=== PATIENT | female | born 1945 | race Caucasian/White ===

== ENCOUNTER 2016-11-21 23:50 | Inpatient (IN) | payer MEDICARE, OTHER ==
--- NOTE | ~2016-11-21 | HP ---
History And Physical [facility] [address] [facility] [place]. [address] NAME: BRITTNEY GUTIERREZ : 47 STATUS : ADM IN [facility]#: [id number] AGE: 71 ADM/REG DATE : 11/22/16 MR#: [id number] REPORT SERV DATE: 11/22/16 DICTATED BY: SALOMON TUCKER DATE: 11/22/16 REPORT STATUS : Draft TRANSCRIBED BY: MODL DATE: 11/22/16 DATE OF ADMISSION: 11/22/2016 CHIEF COMPLAINT: Right lower extremity swelling and redness with an ulcer. HISTORY OF PRESENT ILLNESS: This is a 71-year-old female with a history of left below-knee amputation due to osteomyelitis in the past, history of chronic neuropathy and depression, who presents to the emergency room at [facility], with the above-mentioned complaint. She is brought here by her son and [id number]-vh-[id number]. History is obtained from the patient and the family who is at bedside, and reviewing data available on the [employer] system. According to available data, Mrs Gutierrez had a right great toe ulcer that has been ongoing for about two months at least now. She has been visited by home health and Dr. Cruz at home, who have been providing care and treatment for her foot. In the last week or two, this has been slowly progressively getting worse. There was increasing redness and swelling in and around her right great toe, and the ulcer was getting worse as well. The home health nurse and other providers decided it was really getting worse and instructed the family to take her to the hospital to be evaluated. In the emergency room, initial workup revealed a right toe cellulitis versus osteomyelitis and Hospitalist Service is asked to admit her for further evaluation and treatment. At the time of my evaluation, she denied any chest pain, palpitations, or orthopnea. She had no cough, hemoptysis, night sweats, or weight loss. She has not had any fevers, chills, nausea, vomiting, or diarrhea. She has not had any recent falls or loss of consciousness either. No other history of hematemesis, hematochezia, or hematuria. No history of recent travel or exposures, other than those mentioned above. PAST MEDICAL HISTORY: Significant for history of depression, hypertension, left below-knee amputation due to osteomyelitis, and Charcot joint. She also has chronic neuropathy. SOCIAL HISTORY: She has never smoked. Does not drink, or use recreational drugs. FAMILY HISTORY: Noncontributory. MEDICATIONS: Her medications at home were reviewed by me in the chart today and reordered by me. REVIEW OF SYSTEMS: As in history of present illness. All other systems were reviewed in detail and are quite unremarkable. PHYSICAL EXAMINATION: GENERAL: This is a pleasant 71-year-old, not in any acute distress. HEENT: Her head is atraumatic and normocephalic. She is alert, awake, oriented to time, History And Physical [address] [place]. [address] NAME: BRITTNEY GUTIERREZ : 47 STATUS : ADM IN [facility]#: [id number] AGE: 71 ADM/REG DATE : 11/22/16 MR#: [id number] REPORT SERV DATE: 11/22/16 DICTATED BY: SALOMON TUCKER DATE: 11/22/16 REPORT STATUS : Draft TRANSCRIBED BY: DAISY DATE: 11/22/16 place, and person. Her pupils are equal, reacting to light and accommodating. External ocular muscles are intact. Membranes are moist and pink. Sclerae are nonicteric. NECK: Supple with no jugular venous distention, lymphadenopathy, or thyromegaly. LUNGS: Clear to auscultation with no wheezes, rubs, or crackles. HEART: Heart sounds were regular with no murmurs, rubs, or gallops. ABDOMEN: Soft and nontender. Bowel sounds are present. EXTREMITIES: No cyanosis, clubbing, or edema. There is left below the knee amputation. NEUROLOGIC: Grossly intact. No focal sensory or motor deficits. Higher functions appeared intact. VITAL SIGNS: Her vital signs today showed a temperature of 97, pulse 88, respirations 16 a minute, blood pressure was 121/71, and oxygen saturations were 95%, breathing 2 L of oxygen via nasal cannula. LABORATORY DATA: Reviewed on the [employer] system showed sodium of 141, potassium 3.9, chloride 104, CO2 of 29, BUN was 25 with a creatinine of 1.10 which is about her baseline. Her glucose was 95. Her lactate today was 0.8. CBC showed a white blood cell count of 8,000, hemoglobin was 11.6, hematocrit 34.3, and platelet count was 213,000. Urinalysis was not performed today. Films of her right lower extremity were reviewed by me on the PACS today and interpreted by me. Per my interpretation, there are no obvious evidence of osteomyelitis. We will await for the official Radiology report. IMPRESSION: 1. Right great toe cellulitis versus osteomyelitis. 2. Right foot ulcer, chronic. 3. Hypertension. 4. Depression. 5. Left below-knee amputation secondary to osteomyelitis. 6. Chronic neuropathy. PLAN: We will admit Mrs. Gutierrez to the Hospitalist Service with defensive monitoring. We will obtain cultures and then start her on empiric IV antibiotics for now, go ahead and consult Infectious Disease Team to evaluate her and offer recommendations. We will also go ahead and consult Dr. Bone, who had seen her in the past. She will be placed on unfractionated heparin at least for tonight for DVT prophylaxis while here. We will get Wound Care to see her as well. I have discussed the above plans with the patient and the family. Questions were answered, and they are agreeable to the above recommendations. Hospitalist Service will be following her during her stay here. MR/DAISY History And Physical [address] [address] NAME: BRITTNEY GUTIERREZ : 47 STATUS : ADM IN [facility]#: [id number] AGE: 71 ADM/REG DATE : 11/22/16 MR#: [id number] REPORT SERV DATE: 11/22/16 DICTATED BY: SALOMON TUCKER DATE: 11/22/16 REPORT STATUS : Draft TRANSCRIBED BY: DAISY DATE: 11/22/16 Salomon Tucker M.D. / [id number] CC: MD Edouard Mcdaniels II, M.D.
--- NOTE | ~2016-11-21 | DS ---
Discharge Summary [facility] [address] [facility] [place]. [address] NAME: BRITTNEY MCCLOUD : 47 STATUS : DIS IN PAT#: [id number] AGE: 71 ADM/REG DATE : 11/22/16 MR#: [id number] REPORT SERV DATE: 11/25/16 DICTATED BY: DATE: REPORT STATUS : Draft TRANSCRIBED BY: MODL DATE: 11/24/16 ADMISSION DATE: 11/22/2016 DISCHARGE DATE: 11/24/2016 DISCHARGE DIAGNOSES: 1. Right great toe cellulitis. 2. Chronic anemia. 3. Chronic peripheral neuropathy. 4. Hypertension. 5. Depression. CONSULTATIONS: 1. Benson Bone M.D., air cargo specialist supervisor. 2. Thiago Kendrick M.D., Infectious Disease. PERTINENT TESTS AND PROCEDURES: 1. X-ray of the right great toe, 11/22/2016, impression: Soft tissue defect involving the distal aspect of the right great toe. No evidence of osseous destruction to indicate osteomyelitis. 2. Blood cultures x2 sites collected on 11/21/2016, preliminary results, no growth at one day. 3. Wound culture of right great toe collected prior to admission on 11/14/2016, final result abundant growth of MSSA and Enterococcus faecalis, group D. CHIEF COMPLAINT UPON ADMISSION: Right lower extremity swelling and redness with an ulcer. HOSPITAL COURSE: Please refer to history and physical, dated 11/22/2016, provided by Dr. Salomon Matthews for complete details of the patient's initial presentation upon admission and health history. Please also refer to consultations, dated 11/22/2016, provided by Dr. Thiago Kendrick, Infectious Disease, and Dr. Benson Bone, air cargo specialist supervisor. Briefly, the patient is a 71-year-old female, who developed a chronic ulcer on the tip of her right great toe over the past few months. Per the patient report, for approximately one and half weeks prior to this admission, the patient's toe became progressively more red and swollen. Drainage from the wound was cultured on an outpatient basis on 11/16/2016, and grew methicillin-sensitive Staph aureus and Enterococcus faecalis. At that time, the patient was treated with doxycycline, but it continued to worsen. So, the patient presented to the emergency department on 11/22/2016, for further evaluation and treatment. The patient was admitted for further evaluation and treatment of right great toe cellulitis versus osteomyelitis. 1. Right great toe cellulitis. The patient has responded to treatment with vancomycin. Dr. Bone removed the eschar from ulcer at the tip of right great toe, bedside on 11/23/2016. The patient tolerated the procedure well. Wound care has included Discharge Summary [facility] [address] [place]. [address] NAME: BRITTNEY MCCLOUD : 47 STATUS : DIS IN PAT#: [id number] AGE: 71 ADM/REG DATE : 11/22/16 MR#: [id number] REPORT SERV DATE: 11/25/16 DICTATED BY: DATE: REPORT STATUS : Draft TRANSCRIBED BY: MODL DATE: 11/24/16 Iodosorb to right great toe with toe sock to be changed daily. Blood cultures obtained on 11/21/2016, no growth to date. Erythema and swelling to right great toe has decreased significantly. Erythema to the right dorsum has almost resolved. ID evaluated the patient today and recommended transition to p.o. Zyvox 600 mg p.o. twice daily x7 days and discharged home. The patient will follow up with Dr. Bone on an outpatient basis for wound care. Home health care will also be following along with the patient. 2. Chronic anemia. The patient's H and H has remained stable throughout this admission and no transfusions have been indicated upon discharge. Hemoglobin and hematocrit were reported to be 9.4 and 28.4. 3. Chronic peripheral neuropathy. Etiology remains unclear. The patient has no history of diabetes mellitus. A1c checked during this admission was reported to be 5.3. Apparently, peripheral neuropathy has led to Charcot joints in both feet in the past. The patient has history of osteomyelitis in 2013 on the left lower extremity that ultimately resulted in a cthmu-tjt-zqcz amputation. 4. Hypertension. The patient's blood pressure has been remained stable on home medications. 5. Depression. The patient's condition has remained stable. The patient currently takes Effexor XR 150 mg p.o. at night, starting tonight this medication needs to be held until Zyvox antibiotic therapy is completed to decrease risk of drug interaction. DISCHARGE CONDITION: At the time of discharge, the patient is hemodynamically stable. DISCHARGE DIET: Regular diet as tolerated. DISCHARGE MEDICATIONS: 1. Elavil 75 mg tablet p.o. daily at bedtime. 2. Iodosorb gel applied to right great toe with toe sock daily to be managed per Home Health Care. 3. Colace 100 mg tablet p.o. twice daily. 4. Colace 100 mg tablet p.o. four times daily as needed. 5. Folic acid 1 mg tablet p.o. daily. 6. Hydrochlorothiazide 12.5 mg tablet p.o. daily. 7. Souris 10/325 mg tablet p.o. four times daily as needed. Per the patient, she takes this medication scheduled. 8. Lisinopril 10 mg tablet p.o. daily. 9. MiraLAX 17 g p.o. daily. 10.Potassium 10 mEq p.o. daily. 11.Zanaflex 4 mg tablet p.o. daily. 12.Effexor XR 150 mg tablet p.o. daily at bedtime. This medication should be held x8 days starting tonight while taking Zyvox. 13.OxyContin 20 mg tablet p.o. every 12 hours. 14.Phenergan 25 mg tablet p.o. every six hours as needed. 15.Imitrex 50 mg tablet p.o. as needed for migraine. 16.Zyvox 600 mg tablet p.o. twice daily x7 days. DISCHARGE INSTRUCTIONS: Discharge Summary [address] [address] NAME: BRITTNEY MCCLOUD : 47 STATUS : DIS IN PAT#: [id number] AGE: 71 ADM/REG DATE : 11/22/16 MR#: [id number] REPORT SERV DATE: 11/25/16 DICTATED BY: DATE: REPORT STATUS : Draft TRANSCRIBED BY: DAISY DATE: 11/24/16 1. Follow up with Dr. Bone, air cargo specialist supervisor, appointment date and time pending. The patient was instructed to return to the emergency department for any acute onset of fever greater than 100.4, lasting more than one hour, any increased swelling, redness, or drainage to right great toe or any other health concerns that are deviations from baseline status at the time of this discharge. EMERY/DAISY VIVIAN Murrieta / [id number] CC: MD Edouard Mcdaniels II, M.D.
--- NOTE | ~2016-11-21 | CN ---
Consultation Report [facility] [address] [place]. [address] NAME: BRITTNEY MCCLOUD : 47 STATUS : ADM IN [facility]#: [id number] AGE: 71 ADM/REG DATE : 11/22/16 MR#: [id number] REPORT SERV DATE: 11/22/16 DICTATED BY: BENSON ROGERS DATE: 11/22/16 REPORT STATUS : Draft TRANSCRIBED BY: MODL DATE: 11/22/16 SURGICAL CONSULTATION DATE OF CONSULTATION: 11/22/2016 REASON FOR CONSULTATION: Right great toe ulcer and cellulitis. HISTORY OF PRESENT ILLNESS: This 71-year-old female presents with a progressive right great toe cellulitis and distal ulcer. She had plain films that revealed no evidence of osteomyelitis. She has neuropathy of unknown origin. She has no other history of immunosuppression. The ulcer has been followed by Dr. Cruz for two months with progressive redness and increasing size. She was admitted to the hospital for evaluation. She has a history of left owliv-rjp-blok amputation for osteomyelitis associated with her neuropathy. She denies any current chest pain, shortness of breath, dyspnea on exertion, syncope, palpitations, jaundice, or itching. PAST MEDICAL HISTORY: As above with hypertension and depression. ALLERGIES: NIACIN, SULFA, CODEINE, NITROFURANTOIN, AND PENICILLIN G CAUSES A RASH. SOCIAL HISTORY: The patient is . She lives with her spouse. She denies alcohol, tobacco, or illicit drug usage. She is retired. FAMILY HISTORY: Positive for hypertension and diabetes. MEDICATIONS: Please see hospital chart. REVIEW OF SYSTEMS: No headache, blurred vision, dizziness, chest pain, shortness of breath, cough, dyspnea on exertion, syncope, palpitations, jaundice, or itching. PHYSICAL EXAMINATION: GENERAL: Well-developed female, in no apparent distress. NECK: Supple. No adenopathy. CARDIOVASCULAR: Regular rate and rhythm without murmur. RESPIRATORY: Clear to auscultation. ABDOMEN: Soft, nondistended. EXTREMITIES: The patient has a well-healed left vbwss-wou-ulkm amputation with contraction with palpation of the bone just beneath the skin. She has a right great toe that is swollen and red with a callus and small superficial ulcer clinically. There is no palpable or visible bone. There is no bulla or crepitance. LABORATORY DATA: White blood cell count within normal limits. Consultation Report [facility] [address] [place]. [address] NAME: BRITTNEY MCCLOUD : 47 STATUS : ADM IN PAT#: [id number] AGE: 71 ADM/REG DATE : 11/22/16 MR#: [id number] REPORT SERV DATE: 11/22/16 DICTATED BY: BENSON ROGERS DATE: 11/22/16 REPORT STATUS : Draft TRANSCRIBED BY: DAISY DATE: 11/22/16 ASSESSMENT: 1. Right great toe cellulitis. 2. Chronic neuropathy of unknown origin. 3. Hypertension. 4. Depression. PLAN: I agree with IV antibiotics and medical care. We will resume diet and reserve any surgical intervention for clinical worsening. JACE/DAISY Benson Rogers M.D. / [id number] CC: MD Edouard Mcdaniels II, M.D.
--- NOTE | ~2016-11-21 | CN ---
Consultation Report [facility] [address] [place]. [address] NAME: BRITTNEY MCCLOUD : 47 STATUS : ADM IN PAT#: [id number] AGE: 71 ADM/REG DATE : 11/22/16 MR#: [id number] REPORT SERV DATE: 11/22/16 DICTATED BY: NJ ARMIJO DATE: 11/22/16 REPORT STATUS : Draft TRANSCRIBED BY: MODL DATE: 11/22/16 INFECTIOUS DISEASE CONSULT DATE OF CONSULTATION: REASON FOR EVALUATION: Treatment of foot infection. HISTORY OF PRESENT ILLNESS: The patient is a 71-year-old female. She has a history of hypertension, depression, apparently peripheral neuropathy has lead to Charcot joints in both feet in the past. In 2012, she developed osteomyelitis on the left and ultimately had to undergo a gzuzp-ooa-vmea amputation for that. She in the last few months has developed a chronic ulcer on the tip of her right great toe, but in the last week and a half, it has grown progressively more red and swollen. On the , drainage from it was cultured and grew methicillin-sensitive Staph aureus and Enterococcus faecalis but very sensitive and grew abundantly. Also, blood cultures were checked and those were negative. She herself states that she was treated with doxycycline but it continued to worsen, so she was admitted last evening. A plain film showed no evidence of osteomyelitis. There is no active drainage from it now, but blood cultures have been done. She has been started on vancomycin. She denies any trauma to it. No unusual environmental exposures recently. PAST MEDICAL HISTORY: Otherwise unremarkable. MEDICATIONS: As mentioned above. ALLERGIES: SHE REPORTS ALLERGIES TO PENICILLIN AND SULFA, BOTH OF WHICH CAUSE A RASH. NITROFURANTOIN AND MACROLIDES; SHE IS UNCERTAIN WHAT HAPPENED WITH THOSE. SOCIAL HISTORY: She is , lives at home with her . No history of smoking. No history of alcohol or substance abuse. FAMILY HISTORY: Noncontributory. PHYSICAL EXAMINATION: GENERAL: A nontoxic elderly female, in no acute distress. She is alert and oriented x3. VITAL SIGNS: Her temperature at presentation was 99.5, 98.4 at present with a pulse 83, respirations 18, blood pressure 129/69, and weight 50 kg. HEENT: Sclerae clear. No oral lesions. NECK: Supple. LUNGS: Clear. HEART: Regular rate and rhythm. ABDOMEN: Soft, nontender. Positive bowel sounds. EXTREMITIES: Pafbu-emw-funa amputation wound is well healed on the left. The right great toe was swollen and red throughout its length with a hard eschar on the tip. No visible Consultation Report [address] [place]. [address] NAME: BRITTNEY MCCLOUD : 47 STATUS : ADM IN PAT#: [id number] AGE: 71 ADM/REG DATE : 11/22/16 MR#: [id number] REPORT SERV DATE: 11/22/16 DICTATED BY: NJ ARMIJO DATE: 11/22/16 REPORT STATUS : Draft TRANSCRIBED BY: DAISY DATE: 11/22/16 bone with mild redness extending back several centimeters from the base of the toe. No other acute lesions obvious. LABORATORY DATA: White count 8, hematocrit 34.3, platelets 213, unremarkable differential on the white blood cell count. BUN and creatinine are 25 and 1.1. IMPRESSION: Infected great toe that is certainly a cellulitis with two different organisms, and I think both of them are probably playing a role in this since she did not get better with doxycycline making me think the Enterococcus is really a pathogen, whether or not there is truly osteo remains to be seen, I would have expected it to show up on the regular x-ray with the length of time she has had this problem. RECOMMENDATIONS: 1. Continue vancomycin. 2. Surgery to see. We will await their evaluation before ordering any further imaging. Finally, I will follow the patient with you. I appreciate very much your consulting on this patient. AMOR Nj Armijo M.D. / [id number]
[~2016-11-21 23:50] MED LIST: *UNABLE1; *UNABLE3; ADVIL PO; AMIT25; AMIT25 PO; AMIT50 PO; AMIT75 PO; ATV.5 PO; BENTYL10; BENTYL10 PO; CEFAZ1 IV; CEFT2 PO; CEFT5 PO; CELEBREX1 PO; CENTRUM TAB1 TAB PO; D.O.S.100 MG PO; DESITIN TOP; DURA100 TOP; EFFEX75 PO; EFFEXOR XR150 MG PO; EFFEXOR100 MG PO; FLAVOXATE100 MG OR; HCTZ25B PO; HYDRALAZINE/HCTZ PO; HYDROCHLOROT12.5 MG PO; HYDROCHLOROT25 MG PO; HYDROCODONE/APAP; IMITREX50 PO; LEVAQUIN5T PO; LORTAB10 PO; MELA3 PO; METHATAB10 PO; MULTIPLE VIT PO; MYCOSCROI TOP; NEUR300 PO; NORCO1 TAB PO; NYSTOP100000 MG TOP; OXYCON20 PO; PHENADOZ25 MG PO; PR25 PO; REST15 PO; STOOL SOFTEN100 MG PO; VITC500 PO; XARELTO10 MG PO; ZANAFLEX 4 MG TA4 MG; ZANAFLEX 4 MG TA4 MG PO; ZANAFLEX2 MG PO; ZBETA10 PO; ZIAC10 PO
[2016-11-22 00:09] LABS: BASOPHILS 0.4 %; BASOPHILS ABSOLUTE 0.03 10/3/uL (0.0-0.16); EOSINOPHILS ABSOLUTE 0.16 10/3/uL (0.0-0.53); ER CBC TAT 0 Hrs 06 MinsNP; HEMATOCRIT 34.3 % (36.0-48.0); HEMOGLOBIN 11.6 g/dL (12.0-16.0); IMMATURE GRANULOCYTES 0.3 %; IMMATURE GRANULOCYTES ABSOLUTE 0.02 10/3/uL (0.0-0.11); LYMPHOCYTES 14.2 %; LYMPHOCYTES ABSOLUTE 1.13 10/3/uL (0.67-4.30); MANUAL DIFF NO %; MEAN CORPUS HGB CONC 33.8 g/dL (32.0-36.0); MEAN CORPUSCULAR HEMOGLOB 31.8 pg (26.0-34.0); MEAN PLATELET VOLUME 8.6 fL (9.2-13.0); MONOCYTES 4.6 %; MONOCYTES ABSOLUTE 0.37 10/3/uL (0.21-1.20); NEUTROPHILS 78.5 %; NEUTROPHILS ABSOLUTE 6.27 10/3/uL (2.02-8.40); PLATELET COUNT 213 10/3/uL (150-400); RBC DISTRIBUTION WIDTH 12.4 % (12.0-16.0); RED CELL COUNT 3.65 10/6/uL (4.0-5.6)
[2016-11-22 00:27] LABS: A/G RATIO 0.8 (0.7-1.9); ALBUMIN 3.5 G/DL (3.5-5.0); CALCIUM, SERUM 9.3 MG/DL (8.5-10.4); CHLORIDE, SERUM 104 MMOL/L (96-112); CO2 (CARBON DIOXIDE) 29 MMOL/L (24-34); GFR AFRICAN AMERICAN 59 ML/MIN (>=60); GFR NON AFRICAN AMERICAN 51 ML/MIN (>=60); GLOBULIN 4.2 G/DL (2.5-4.1); GLUCOSE, SERUM 95 MG/DL (60-99); POTASSIUM, SERUM 3.9 MMOL/L (3.5-5.3); SGOT(AST) 9 U/L (5-40); SGPT(ALT) 12 U/L (5-65); SODIUM, SERUM 141 MMOL/L (135-148); TOTAL BILIRUBIN 0.3 MG/DL (0-1.2); TOTAL PROTEIN 7.7 G/DL (6.0-8.5)
[2016-11-22 00:28] LABS: ALKALINE PHOSPHATASE 106 U/L (45-117); BUN (BLOOD UREA NITROGEN) 25 MG/DL (6-23)
[2016-11-22] MEDS ORDERED: FOLIC PO (02:33)
[2016-11-22] MEDS ORDERED: OXYCON20 PO (02:33)
[2016-11-22] MEDS ORDERED: IMITREX50 PO (02:34)
[2016-11-22] MEDS ORDERED: NORCO1 TAB PO (02:34)
[2016-11-22] MEDS ORDERED: MONODOX100 MG PO (02:35)
[2016-11-22] MEDS ORDERED: DSS PO ×2 (02:35→02:36)
[2016-11-22] MEDS ORDERED: PR25 PO (02:36)
[2016-11-22] MEDS ORDERED: AMIT75 PO (02:36)
[2016-11-22] MEDS ORDERED: MICROZIDE PO (02:36)
[2016-11-22] MEDS ORDERED: EFFEXOR XR150 MG PO (02:37)
[2016-11-22] MEDS ORDERED: KDUR10 PO (02:37)
[2016-11-22] MEDS ORDERED: ZANAFLEX 4 MG TA4 MG PO (02:37)
[2016-11-22] MEDS ORDERED: PRIN10 PO (02:38)
[2016-11-22 08:39] LABS: BASOPHILS 0.4 %; BASOPHILS ABSOLUTE 0.03 10/3/uL (0.0-0.16); EOSINOPHILS 2.9 %; HEMOGLOBIN 9.8 g/dL (12.0-16.0); IMMATURE GRANULOCYTES 0.1 %; IMMATURE GRANULOCYTES ABSOLUTE 0.01 10/3/uL (0.0-0.11); LYMPHOCYTES 20.1 %; LYMPHOCYTES ABSOLUTE 1.38 10/3/uL (0.67-4.30); MEAN CORPUS HGB CONC 34.1 g/dL (32.0-36.0); MEAN CORPUSCULAR HEMOGLOB 31.6 pg (26.0-34.0); MEAN CORPUSCULAR VOLUME 92.6 fL (80-100); MEAN PLATELET VOLUME 8.7 fL (9.2-13.0); MONOCYTES 6.1 %; MONOCYTES ABSOLUTE 0.42 10/3/uL (0.21-1.20); NEUTROPHILS 70.4 %; NEUTROPHILS ABSOLUTE 4.84 10/3/uL (2.02-8.40); PLATELET COUNT 184 10/3/uL (150-400); RBC DISTRIBUTION WIDTH 12.6 % (12.0-16.0); WHITE BLOOD CELLS 6.9 10/3/uL (4.5-10.5)
[2016-11-22 08:42] LABS: HEMATOCRIT 28.7 % (36.0-48.0); MANUAL DIFF NO %
[2016-11-22 08:44] LABS: BUN (BLOOD UREA NITROGEN) 22 MG/DL (6-23); CALCIUM, SERUM 8.7 MG/DL (8.5-10.4); CHLORIDE, SERUM 109 MMOL/L (96-112); CREATININE 0.84 MG/DL (0.55-1.02); GFR AFRICAN AMERICAN 82 ML/MIN (>=60); GFR NON AFRICAN AMERICAN 70 ML/MIN (>=60); GLUCOSE, SERUM 81 MG/DL (60-99); POTASSIUM, SERUM 3.6 MMOL/L (3.5-5.3); SODIUM, SERUM 144 MMOL/L (135-148)
[2016-11-22 08:45] LABS: CO2 (CARBON DIOXIDE) 24 MMOL/L (24-34); PHOSPHORUS, SERUM 2.8 MG/DL (2.5-4.5)
[2016-11-23 05:32] LABS: BASOPHILS 0.2 %; BASOPHILS ABSOLUTE 0.01 10/3/uL (0.0-0.16); EOSINOPHILS 4.2 %; HEMATOCRIT 28.4 % (36.0-48.0); HEMOGLOBIN 9.4 g/dL (12.0-16.0); IMMATURE GRANULOCYTES 0.2 %; IMMATURE GRANULOCYTES ABSOLUTE 0.01 10/3/uL (0.0-0.11); LYMPHOCYTES 33.5 %; LYMPHOCYTES ABSOLUTE 1.58 10/3/uL (0.67-4.30); MEAN CORPUS HGB CONC 33.1 g/dL (32.0-36.0); MEAN CORPUSCULAR HEMOGLOB 31.5 pg (26.0-34.0); MEAN CORPUSCULAR VOLUME 95.3 fL (80-100); MEAN PLATELET VOLUME 8.9 fL (9.2-13.0); MONOCYTES 6.8 %; MONOCYTES ABSOLUTE 0.32 10/3/uL (0.21-1.20); NEUTROPHILS 55.1 %; NEUTROPHILS ABSOLUTE 2.59 10/3/uL (2.02-8.40); PLATELET COUNT 178 10/3/uL (150-400); RBC DISTRIBUTION WIDTH 12.6 % (12.0-16.0); RED CELL COUNT 2.98 10/6/uL (4.0-5.6); WHITE BLOOD CELLS 4.7 10/3/uL (4.5-10.5)
[2016-11-23 05:35] LABS: MANUAL DIFF NO %
[2016-11-23 05:48] LABS: BUN (BLOOD UREA NITROGEN) 17 MG/DL (6-23); CALCIUM, SERUM 8.1 MG/DL (8.5-10.4); CHLORIDE, SERUM 110 MMOL/L (96-112); CO2 (CARBON DIOXIDE) 25 MMOL/L (24-34); CREATININE 0.74 MG/DL (0.55-1.02); GFR AFRICAN AMERICAN 95 ML/MIN (>=60); GFR NON AFRICAN AMERICAN 82 ML/MIN (>=60); GLUCOSE, SERUM 77 MG/DL (60-99); SODIUM, SERUM 142 MMOL/L (135-148)
[2016-11-24 06:06] LABS: CALCIUM, SERUM 7.6 MG/DL (8.5-10.4); CHLORIDE, SERUM 113 MMOL/L (96-112); CO2 (CARBON DIOXIDE) 25 MMOL/L (24-34); CREATININE 0.81 MG/DL (0.55-1.02); GFR AFRICAN AMERICAN 85 ML/MIN (>=60); GFR NON AFRICAN AMERICAN 74 ML/MIN (>=60); POTASSIUM, SERUM 3.8 MMOL/L (3.5-5.3); SODIUM, SERUM 145 MMOL/L (135-148)
[2016-11-24 06:07] LABS: BUN (BLOOD UREA NITROGEN) 10 MG/DL (6-23); GLUCOSE, SERUM 95 MG/DL (60-99)
[2016-11-24 06:27] LABS: BASOPHILS 0.5 %; BASOPHILS ABSOLUTE 0.03 10/3/uL (0.0-0.16); EOSINOPHILS 5.5 %; HEMOGLOBIN 8.8 g/dL (12.0-16.0); IMMATURE GRANULOCYTES 0.4 %; IMMATURE GRANULOCYTES ABSOLUTE 0.02 10/3/uL (0.0-0.11); LYMPHOCYTES 23.1 %; LYMPHOCYTES ABSOLUTE 1.27 10/3/uL (0.67-4.30); MEAN CORPUS HGB CONC 33.8 g/dL (32.0-36.0); MEAN CORPUSCULAR VOLUME 94.5 fL (80-100); MEAN PLATELET VOLUME 8.8 fL (9.2-13.0); MONOCYTES ABSOLUTE 0.33 10/3/uL (0.21-1.20); NEUTROPHILS 64.5 %; NEUTROPHILS ABSOLUTE 3.55 10/3/uL (2.02-8.40); PLATELET COUNT 160 10/3/uL (150-400); RBC DISTRIBUTION WIDTH 12.7 % (12.0-16.0); RED CELL COUNT 2.75 10/6/uL (4.0-5.6); WHITE BLOOD CELLS 5.5 10/3/uL (4.5-10.5)
[2016-11-24 06:29] LABS: MANUAL DIFF NO %
[2016-11-24] MEDS ORDERED: MIRALAX POWDER1 PKT PO (12:36)
[2016-11-24] MEDS ORDERED: T PO (12:37)
[2016-11-24] MEDS ORDERED: ZYVOXPO PO (12:38)
[2016-11-24] MEDS ORDERED: IODOSORB TOP (12:42)
[2017-01-05] MEDS ORDERED: OXYCON20 PO (19:35)
[2017-01-05] MEDS ORDERED: KDUR10 PO (19:36)
[2017-01-05] MEDS ORDERED: IMITREX50 PO (19:36)
[2017-01-05] MEDS ORDERED: NORCO1 TAB PO (19:36)
[2017-01-05] MEDS ORDERED: FOLIC PO (19:37)
[2017-01-05] MEDS ORDERED: PRIN10 PO (19:37)
[2017-01-05] MEDS ORDERED: AMIT75 PO (19:37)
[2017-01-05] MEDS ORDERED: ZANAFLEX 4 MG TA4 MG PO (19:38)
[2017-01-05] MEDS ORDERED: EFFEXOR XR150 MG PO (19:38)
[2017-01-05] MEDS ORDERED: DSS PO (19:39)
[2017-01-05] MEDS ORDERED: HYDROCHLOROT25 MG PO (19:40)
[2017-01-05] MEDS ORDERED: MIRALAX POWDER1 PKT PO (19:40)
[2017-02-02] MEDS ORDERED: NORCO1 TA2 PO (18:31)
== END 2016-11-24 16:23 | disposition home health service (06) | DRG 603 ==
LOC: ER 23:50 → 4EA 11-22 03:21
PROVIDERS: Internal Medicine Pulmonary Disease; Nurse Practitioner Family; Specialist
DX: L03.031 Cellulitis of right toe (principal); G62.89 Other specified polyneuropathies; D64.9 Anemia, unspecified; I10 Essential (primary) hypertension; F32.9 Major depressive disorder, single episode, unspecified; Z89.512 Acquired absence of left leg below knee
CPT/HCPCS: 73660-RT; 80048; 80053; 83036; 83735; 84100; 85025; 87040; 87070; 87205; 96365; 99285; A9270-GY; J3370

== ENCOUNTER 2017-01-05 19:55 | Inpatient (IN) | payer MEDICARE, OTHER ==
--- NOTE | ~2017-01-05 | DS ---
Discharge Summary [facility] [address] [place]. [address] NAME: BRITTNEY MCCLOUD : 47 STATUS : DIS IN PAT#: [id number] AGE: 71 ADM/REG DATE : 01/05/17 MR#: [id number] REPORT SERV DATE: 01/09/17 DICTATED BY: SERA ROMERO DATE: 01/08/17 REPORT STATUS : Draft TRANSCRIBED BY: MODL DATE: 01/08/17 ADMISSION DATE: 01/05/2017 DISCHARGE DATE: 01/08/2017 HOSPITAL COURSE: This is a very pleasant 71-year-old female; however, she looks older than her stated age. She has a history of hypertension, neuropathy, depression as well as having a right fifth toe osteomyelitis, status post distal amputation including a left lower extremity osteomyelitis requiring a BKA already. The patient originally was here in November 2016 for right great toe cellulitis, MSSA Enterococcus additionally. She was discharged without evidence of osteomyelitis at that time. Then the home health nurse stated that her right great toe worsen significantly, coming in here, placed on IV Rocephin and vancomycin with Infectious Disease for osteomyelitis concern which surgically required a right first transmetatarsal amputation by Dr. Bone on the 01/06/2017; neuropathic ulcer, failure outpatient therapy; osteomyelitis; cellulitis. Dr. Kendrick is okay with Duricef 1 g p.o. b.i.d. for seven more day for the surrounding cellulitis. It is not surgically removed. The patient is amenable for discharge, wants to go home. Wound cultures grew out methicillin-sensitive Staph. Blood cultures, no growth to date. CRP has gone down every day that has been recorded at least. medications; Elavil p.o. daily, aspirin 81 p.o. daily, Lipitor 20 p.o. daily as well as having Duricef 1 g p.o. b.i.d. for seven more days as well as having Colace as well as having folic acid, lisinopril 10 p.o. daily, KCl 10 mEq p.o. daily as well as having Zanaflex p.r.n. Effexor XR, oxycodone sustained release, Lortab 7.5/325 p.o. q.6 p.r.n. pain, Imitrex p.r.n., HCTZ, MiraLAX. CONSULT: ID as well as Surgery. PROCEDURES: See above. DISCHARGE DIAGNOSES: Right great toes osteomyelitis and surrounding cellulitis. I would be concerned for possible PA evaluation. Would get an MUSHTAQ as an outpatient, per the PCP hypertension the patient had a concern for diabetes. Her fasting sugar is 71. A1c is 5.3, I doubt it. All questions were answered, it took well over 30 minutes to do. DICTATED BY: DO STALIN Hernandez/DAISY Sera Romero DO / [id number] Discharge Summary [address] [address] NAME: BRITTNEY MCCLOUD : 47 STATUS : DIS IN PAT#: [id number] AGE: 71 ADM/REG DATE : 01/05/17 MR#: [id number] REPORT SERV DATE: 01/09/17 DICTATED BY: SERA ROMERO DATE: 01/08/17 REPORT STATUS : Draft TRANSCRIBED BY: DAISY DATE: 01/08/17 CC: DO Edouard Hernandez M.D.
--- NOTE | ~2017-01-05 | HP ---
History And Physical [facility] [address] [place]. [address] NAME: BRITTNEY GUTIERREZ : 47 STATUS : ADM IN [facility]#: [id number] AGE: 71 ADM/REG DATE : 01/05/17 MR#: [id number] REPORT SERV DATE: 01/05/17 DICTATED BY: ANNE ABDUL DATE: 01/05/17 REPORT STATUS : Draft TRANSCRIBED BY: MODDell DATE: 01/05/17 DATE OF ADMISSION: 01/05/2017 POINT OF ENTRY: [facility] Emergency Department. CHIEF COMPLAINT: Right great toe infection. HISTORY OF PRESENT ILLNESS: Ms. Gutierrez is a 71-year-old female with a history of hypertension, neuropathy, depression, as well as prior issues with lower extremity osteomyelitis requiring multiple amputations who presents to the emergency department today with a one to two day history of worsening right great toe and forefoot redness, pain, swelling, and drainage. The patient was admitted to the Hospitalist Service in 11/2016 for right great toe cellulitis. At that time, her cultures grew MSSA as well as Enterococcus faecalis. She responded well to antibiotics, did not have any evidence of osteomyelitis and was discharged to home. The patient states that her foot continued to improve as an outpatient up until about two days ago when home health nurse changed bandage on the right great toe and it accidentally became dislodged unbeknownst to her. When she went to look at her foot today after removing her socks she noted worsening erythema, swelling, tenderness, as well as some purulent drainage from the tip of the right great toe. She denies any fevers, night sweats, or chills. Initial evaluation in the emergency department was notable for labs otherwise unremarkable. Stable vital signs. No white count. Plain films are reportedly concerning for some lytic destruction of her distal right great toe concerning for osteomyelitis. She was started on IV vancomycin and admitted to the Hospitalist Service. REVIEW OF SYSTEMS: Comprehensive review of systems otherwise negative unless listed in history present illness. PREVIOUS MEDICAL HISTORY: 1. Neuropathy. 2. Depression. 3. Hypertension. 4. Left lower extremity osteomyelitis, status post BKA. 5. Right fifth toe osteomyelitis, status post distal amputation. SURGICAL HISTORY: 1. Left BKA. 2. Right fifth toe amputation. ALLERGIES: 1. PENICILLIN. 2. CODEINE. 3. MACROBID. History And Physical [facility] [address] [place]. [address] NAME: BRITTNEY GUTIERREZ : [birth year] STATUS : ADM IN PAT#: [id number] AGE: 71 ADM/REG DATE : 01/05/17 MR#: [id number] REPORT SERV DATE: 01/05/17 DICTATED BY: ANNE ABDUL DATE: 01/05/17 REPORT STATUS : Draft TRANSCRIBED BY: DAISY DATE: 01/05/17 4. MACROLIDES. 5. SULFA DRUGS. HOME MEDICATIONS: 1. Elavil 75 mg at bedtime. 2. Docusate 100 mg b.i.d. 3. Folic acid 1 mg daily. 4. Hydrochlorothiazide 12.5 mg daily. 5. Jachin 10/325, 1-1/2 tabs q.6 hours. 6. Lisinopril 10 mg daily. 7. OxyContin 10 mg b.i.d. 8. MiraLAX 17 g daily. 9. Potassium chloride 10 mEq daily. 10.Imitrex 50 mg p.r.n. 11.Zanaflex 4 mg q.6 hours. 12.Effexor XR 300 mg daily. SOCIAL HISTORY: Denies tobacco, alcohol, or illicits. FAMILY MEDICAL HISTORY: Mother with coronary artery disease. Father with Alzheimer's dementia. Siblings with diabetes and hypertension. LABS AND IMAGIN. White count 6.6, hemoglobin 10.1, hematocrit is 30.9, and platelet count 198. 2. Sodium is 141, potassium 4.0, chloride 107, carbon dioxide 26, BUN 17, creatinine 0.78, glucose is 107, and calcium 9.0. 3. Plain films of the right foot, per my review, I do not appreciate any osteolytic destruction of the right great toe, but we will need to follow up formal Radiology reads in the morning. PHYSICAL EXAMINATION: VITAL SIGNS: Temperature is 98.5 degrees Fahrenheit, pulse is 106, respirations 16, saturating 97% on room air, and blood pressure is 126/65. GENERAL: The patient is awake, alert, in no acute distress, resting comfortably in bed. She is a well-developed, well-nourished, elderly female. HEENT: Atraumatic and normocephalic. Moist mucous membranes. Pupils are equal, round, and reactive to light and accommodation. Extraocular eye movements are intact. No scleral icterus. NECK: No jugular venous distention. No carotid bruits. CARDIAC: Regular rate and rhythm. No murmurs or gallops. Normal S1, S2. LUNGS: Clear to auscultation bilaterally. No wheezes, rhonchi, or crackles. ABDOMEN: Soft, nontender, nondistended with good bowel sounds. No rebound, guarding, or rigidity. EXTREMITIES: She is status post left BKA as well as right fifth toe amputation. The right great toe is swollen and erythematous, has evidence of chronic infection related changes as well as a small ulcer on the tip of the distal right great toe where we were able to express some purulent drainage. The remainder of the right forefoot is somewhat mildly erythematous History And Physical [address] [address] NAME: BRITTNEY GUTIERREZ : 47 STATUS : ADM IN [facility]#: [id number] AGE: 71 ADM/REG DATE : 01/05/17 MR#: [id number] REPORT SERV DATE: 01/05/17 DICTATED BY: ANNE ABDUL DATE: 01/05/17 REPORT STATUS : Draft TRANSCRIBED BY: DAISY DATE: 01/05/17 and somewhat warm to the touch. SKIN: Warm and dry except for noted above. PSYCH: Affect appropriate. NEURO: Alert and oriented x3. Cranial nerves 2 through 12 grossly intact. Speech is normal. Gait not assessed. ASSESSMENT AND PLAN: Ms. Gutierrez is a 71-year-old female with a prior history of osteomyelitis requiring multiple amputations who presents with right great toe, redness, swelling, and drainage concerning for recurrent cellulitis versus possible osteomyelitis. PROBLEM LIST: 1. Right great toe cellulitis versus osteomyelitis. 2. Hypertension. 3. Neuropathy. PLAN: 1. Right great toe cellulitis versus osteomyelitis. We will admit patient to the Hospitalist Service. We will check ESR, CRP, as well as MRI of the lower extremity to definitively determine if she has osteomyelitis of the affected region. Culture results in the recent past have grown MRSA, MSSA as Enterococcus faecalis, all of which can be covered by IV vancomycin. I will also add on IV Rocephin in the interim. We will also consult Infectious Diseases as well as Dr. Bone of General surgery who saw her as well in November. 2. Hypertension. Continue the patient's home medications. 3. DVT prophylaxis. Lovenox subcu. CODE STATUS: The patient wished to be full code. JCB/MODL Anne Abdul MD / [id number] CC: DO Edouard Hernandez M.D.
--- NOTE | ~2017-01-05 | OP ---
Record Of Operation [facility] [address] [place]. [address] NAME: BRITTNEY MCCLOUD : 47 STATUS : ADM IN PAT#: [id number] AGE: 71 ADM/REG DATE : 01/05/17 MR#: [id number] REPORT SERV DATE: 01/06/17 DICTATED BY: BENSON ROGERS DATE: 01/06/17 REPORT STATUS : Draft TRANSCRIBED BY: MODL DATE: 01/06/17 DATE OF PROCEDURE: 01/06/2017 PREOPERATIVE DIAGNOSES: 1. Right great toe neuropathic ulcer, with failure of outpatient therapy, and osteomyelitis, and cellulitis. 2. Hypertension. 3. Neuropathy. POSTOPERATIVE DIAGNOSES: 1. Right great toe neuropathic ulcer, with failure of outpatient therapy, and osteomyelitis, and cellulitis. 2. Hypertension. 3. Neuropathy. PROCEDURE: Right first transmetatarsal amputation. ANESTHESIA: MAC anesthesia. SURGEON: Benson Rogers M.D. COMPLICATIONS: None. DRAINS: None. ESTIMATED BLOOD LOSS: 100 mL. OPERATIVE TECHNIQUE: The patient was brought to the operating room and placed on the table in supine position. She had antibiotics per schedule. She underwent adequate MAC anesthesia and was prepped and draped in sterile fashion. A time-out was completed. The 15 blade knife was used to make a racquet incision. The incision was carried down into the soft tissue circumferentially to the level of the metatarsophalangeal joint. The joint was then opened and the toe was completely excised from the soft tissue and then sent to Pathology using electrocautery. The dissection then continued on the dorsal surface of the first metatarsal to the midshaft and then was dissected circumferentially. At which point, the saw was used to divide the bone completely. It was then removed from the soft tissue and discarded. The patient's posterior digital artery was identified and was noted to be bleeding distally and this was suture ligated with Vicryl suture. The wound was then thoroughly irrigated and hemostasis was noted. The deep subcutaneous tissues were reapproximated using interrupted 3-0 Vicryl sutures. The skin edges were reapproximated using a combination of simple and horizontal mattress 3-0 nylon sutures. There was no tension. The incision was then covered with Aquacel Ag, followed by dry gauze, and roll gauze. She was taken to recovery room in stable condition. All sponge needle counts reported correct. Record Of Operation [facility] [address] [place] [address] NAME: BRITTNEY MCCLOUD : 47 STATUS : ADM IN PAT#: [id number] AGE: 71 ADM/REG DATE : 01/05/17 MR#: [id number] REPORT SERV DATE: 01/06/17 DICTATED BY: BENSON ROGERS DATE: 01/06/17 REPORT STATUS : Draft TRANSCRIBED BY: DAISY DATE: 01/06/17 /DAISY Benson Rogers M.D. / [id number] CC: DO Edouard Hernandez M.D. [facility]
--- NOTE | ~2017-01-05 | CN ---
Consultation Report [facility] [address] [place]. [address] NAME: BRITTNEY MCCLOUD : 47 STATUS : ADM IN PAT#: [id number] AGE: 71 ADM/REG DATE : 01/05/17 MR#: [id number] REPORT SERV DATE: 01/06/17 DICTATED BY: BENSON ROGERS DATE: 01/06/17 REPORT STATUS : Draft TRANSCRIBED BY: MODL DATE: 01/06/17 SURGICAL CONSULTATION DATE OF CONSULTATION: 01/06/2017 CHIEF COMPLAINT: Right great toe ulcer with osteomyelitis and purulent drainage and cellulitis. HISTORY OF PRESENT ILLNESS: This 71-year-old female presented with a history of neuropathy with an ulcer in the past that led to a left exzmn-[id number]-mrvk amputation. She also has hypertension and depression. She has been followed in the [facility] by me for a right distal phalanx ulcer as well as other ulcers on the right great first metatarsal head laterally. There are some superficial ulcerations of the left lower extremity as well that have improved. She presented to the emergency department today with worsening erythema and pain and purulent drainage. She was admitted and cultures were noted to have MSSA as well as enterococcus. She responded to antibiotics and did not have osteomyelitis confirmed at that time. She had plain films today that reveal changes consistent with osteomyelitis. On exam, her right great toe is erythematous, swollen, and she has purulent drainage and palpable bone consistent with osteomyelitis. She declines [id number]-[id number] amputation which has been recommended with her other ulcers and past history. She has agreed to a right first transmetatarsal amputation that would most likely be open secondary to her lack of skin for closure that is healthy. She is aware that she may need further surgical intervention. She is informed of her option of observation with antibiotics and has declined. PAST MEDICAL HISTORY: As above. PAST SURGICAL HISTORY: Hysterectomy, left BKA, right 5th toe amputation. ALLERGIES: PENICILLIN, CODEINE, AND MACROBID. MEDICATIONS: Please see hospital chart. FAMILY HISTORY: Positive for diabetes in her brother. SOCIAL HISTORY: The patient lives at home. She has no alcohol, tobacco, or illicit drug usage. REVIEW OF SYSTEMS: No headache, blurred vision, dizziness, chest pain, shortness of breath, cough, dyspnea on exertion, syncope, palpitations, jaundice, or itching. LABORATORY DATA: White blood cell count 6600, hemoglobin and hematocrit 9.1 and 27.2. Her albumin is 2.6. Creatinine and basic metabolic panel are normal. Consultation Report [address] [place]. [address] NAME: BRITTNEY MCCLOUD : 47 STATUS : ADM IN PAT#: [id number] AGE: 71 ADM/REG DATE : 01/05/17 MR#: [id number] REPORT SERV DATE: 01/06/17 DICTATED BY: BENSON ROGERS DATE: 01/06/17 REPORT STATUS : Draft TRANSCRIBED BY: DAISY DATE: 01/06/17 IMAGING: The patient had a right foot x-ray that reveals osteolytic erosion of the distal phalangeal tuft, consistent with osteomyelitis. PHYSICAL EXAMINATION: GENERAL: Cachectic female, in no apparent distress. NECK: Supple. No adenopathy. HEENT: Normocephalic, atraumatic. CARDIOVASCULAR: Regular rate and rhythm without murmur. RESPIRATORY: Clear to auscultation. ABDOMEN: Soft, nondistended, nontender. BACK: No CVA tenderness. EXTREMITIES: The patient has a left BKA that is healed. She has a right 5th toe amputation that is healed. She has a right great toe that is swollen with a distal phalangeal and medial metatarsal head ulcer with purulent drainage and redness that extends on the dorsal aspect of the second and third toes. There is no bulla or crepitance. ASSESSMENT: 1. Right great toe neuropathic ulcer with failure of outpatient therapy and cellulitis and osteomyelitis. 2. Hypertension. 3. Neuropathy. 4. Anemia. 5. Clinical malnutrition with further delineation needed. PLAN: After discussion with the patient, she is aware of the risks, benefits, and alternatives of right first transmetatarsal amputation with possible negative pressure wound therapy and she is in agreement. She is aware that she may need further intervention surgically. She is aware that I have recommended a right wezqg-tcr-[id number] amputation with her other ulcers in the foreleg and previous history of amputation and nonambulatory state. /DAISY Benson Rogers M.D. / [id number] CC: DO Edouard Hernandez M.D.
[2017-01-05 19:09] LABS: HEMOGLOBIN 10.1 g/dL (12.0-16.0); MEAN CORPUS HGB CONC 32.7 g/dL (32.0-36.0); MEAN CORPUSCULAR HEMOGLOB 30.9 pg (26.0-34.0); MEAN CORPUSCULAR VOLUME 94.5 fL (80-100); MEAN PLATELET VOLUME 9.3 fL (9.2-13.0); PLATELET COUNT 198 10/3/uL (150-400); RBC DISTRIBUTION WIDTH 13.2 % (12.0-16.0); RED CELL COUNT 3.27 10/6/uL (4.0-5.6); WHITE BLOOD CELLS 6.6 10/3/uL (4.5-10.5)
[2017-01-05 19:19] LABS: DIFFERENTIAL ORDERED Y; HEMATOCRIT 30.9 % (36.0-48.0)
[2017-01-05 19:25] LABS: CHLORIDE, SERUM 107 MMOL/L (96-112); CO2 (CARBON DIOXIDE) 26 MMOL/L (24-34); CREATININE 0.78 MG/DL (0.55-1.02); GFR AFRICAN AMERICAN 89 ML/MIN (>=60); GFR NON AFRICAN AMERICAN 77 ML/MIN (>=60); GLUCOSE, SERUM 107 MG/DL (60-99); SODIUM, SERUM 141 MMOL/L (135-148)
[2017-01-05 19:26] LABS: BUN (BLOOD UREA NITROGEN) 17 MG/DL (6-23)
[2017-01-05 19:34] LABS: EOSINOPHILS 2 %; EOSINOPHILS ABSOLUTE (CALC) 0.13 10/3/uL (0.0-0.53); LYMPHOCYTES 34 %; LYMPHOCYTES ABSOLUTE (CALC) 2.24 10/3/uL (0.67-4.30); MONOCYTES 6 %; NEUTROPHILS ABSOLUTE (CALC) 3.83 10/3/uL (2.02-8.40); PLATELET ESTIMATE ADQ (ADEQUATE); RBC MORPHOLOGY NORM (NORMAL); SEGMENTED NEUTROPHIL (0) 58 %; TOTAL NUCLEATED CELLS 100
[~2017-01-05 19:55] MED LIST changes: +DSS PO; +FOLIC PO; +IODOSORB TOP; +KDUR10 PO; +MICROZIDE PO; +MIRALAX POWDER1 PKT PO; +MONODOX100 MG PO; +PRIN10 PO; +T PO; +ZYVOXPO PO
[2017-01-06 06:16] LABS: A/G RATIO 0.8 (0.7-1.9); ALBUMIN 2.6 G/DL (3.5-5.0); ALKALINE PHOSPHATASE 75 U/L (45-117); BUN (BLOOD UREA NITROGEN) 14 MG/DL (6-23); CALCIUM, SERUM 8.7 MG/DL (8.5-10.4); CHLORIDE, SERUM 112 MMOL/L (96-112); CO2 (CARBON DIOXIDE) 26 MMOL/L (24-34); CREATININE 0.65 MG/DL (0.55-1.02); GFR AFRICAN AMERICAN 104 ML/MIN (>=60); GFR NON AFRICAN AMERICAN 90 ML/MIN (>=60); GLOBULIN 3.4 G/DL (2.5-4.1); GLUCOSE, SERUM 79 MG/DL (60-99); POTASSIUM, SERUM 3.9 MMOL/L (3.5-5.3); SGOT(AST) 12 U/L (5-40); SGPT(ALT) 17 U/L (5-65); SODIUM, SERUM 143 MMOL/L (135-148); TOTAL BILIRUBIN 0.3 MG/DL (0-1.2)
[2017-01-06 06:17] LABS: BASOPHILS 0.2 %; BASOPHILS ABSOLUTE 0.01 10/3/uL (0.0-0.16); EOSINOPHILS 4.7 %; EOSINOPHILS ABSOLUTE 0.22 10/3/uL (0.0-0.53); HEMATOCRIT 27.2 % (36.0-48.0); HEMOGLOBIN 9.1 g/dL (12.0-16.0); IMMATURE GRANULOCYTES 0.4 %; IMMATURE GRANULOCYTES ABSOLUTE 0.02 10/3/uL (0.0-0.11); LYMPHOCYTES 21.4 %; LYMPHOCYTES ABSOLUTE 1.01 10/3/uL (0.67-4.30); MANUAL DIFF NO %; MEAN CORPUS HGB CONC 33.5 g/dL (32.0-36.0); MEAN CORPUSCULAR HEMOGLOB 31.4 pg (26.0-34.0); MEAN CORPUSCULAR VOLUME 93.8 fL (80-100); MONOCYTES 10.4 %; MONOCYTES ABSOLUTE 0.49 10/3/uL (0.21-1.20); NEUTROPHILS 62.9 %; NEUTROPHILS ABSOLUTE 2.98 10/3/uL (2.02-8.40); PLATELET COUNT 168 10/3/uL (150-400); WHITE BLOOD CELLS 4.7 10/3/uL (4.5-10.5)
[2017-01-07 07:42] LABS: BASOPHILS 0.2 %; BASOPHILS ABSOLUTE 0.01 10/3/uL (0.0-0.16); EOSINOPHILS ABSOLUTE 0.23 10/3/uL (0.0-0.53); HEMATOCRIT 27.6 % (36.0-48.0); IMMATURE GRANULOCYTES 0.3 %; IMMATURE GRANULOCYTES ABSOLUTE 0.02 10/3/uL (0.0-0.11); LYMPHOCYTES 16.4 %; LYMPHOCYTES ABSOLUTE 0.94 10/3/uL (0.67-4.30); MEAN CORPUS HGB CONC 32.6 g/dL (32.0-36.0); MEAN CORPUSCULAR HEMOGLOB 30.7 pg (26.0-34.0); MEAN CORPUSCULAR VOLUME 94.2 fL (80-100); MEAN PLATELET VOLUME 9.1 fL (9.2-13.0); MONOCYTES 5.4 %; MONOCYTES ABSOLUTE 0.31 10/3/uL (0.21-1.20); NEUTROPHILS 73.7 %; NEUTROPHILS ABSOLUTE 4.22 10/3/uL (2.02-8.40); PLATELET COUNT 177 10/3/uL (150-400); RBC DISTRIBUTION WIDTH 13.1 % (12.0-16.0); RED CELL COUNT 2.93 10/6/uL (4.0-5.6); WHITE BLOOD CELLS 5.7 10/3/uL (4.5-10.5)
[2017-01-07 07:45] LABS: MANUAL DIFF NO %
[2017-01-07 07:57] LABS: BUN (BLOOD UREA NITROGEN) 8 MG/DL (6-23); CALCIUM, SERUM 8.7 MG/DL (8.5-10.4); CHLORIDE, SERUM 109 MMOL/L (96-112); CO2 (CARBON DIOXIDE) 26 MMOL/L (24-34); CREATININE 0.75 MG/DL (0.55-1.02); GFR AFRICAN AMERICAN 94 ML/MIN (>=60); GFR NON AFRICAN AMERICAN 81 ML/MIN (>=60); GLUCOSE, SERUM 136 MG/DL (60-99); PHOSPHORUS, SERUM 2.2 MG/DL (2.5-4.5); POTASSIUM, SERUM 3.9 MMOL/L (3.5-5.3); SODIUM, SERUM 141 MMOL/L (135-148)
[2017-01-07 07:59] LABS: C-REACTIVE PROTEIN 51.3 MG/L (<8.0)
[2017-01-08 06:49] LABS: BUN (BLOOD UREA NITROGEN) 8 MG/DL (6-23); CALCIUM, SERUM 8.8 MG/DL (8.5-10.4); CHLORIDE, SERUM 108 MMOL/L (96-112); CO2 (CARBON DIOXIDE) 25 MMOL/L (24-34); FERRITIN 128 NG/ML (8-252); GFR AFRICAN AMERICAN 102 ML/MIN (>=60); GFR NON AFRICAN AMERICAN 88 ML/MIN (>=60); SODIUM, SERUM 141 MMOL/L (135-148)
[2017-01-08 06:50] LABS: GLUCOSE, SERUM 71 MG/DL (60-99)
[2017-01-08] MEDS ORDERED: HALF81 PO (10:38)
[2017-01-08] MEDS ORDERED: NORCO1 TA2 (10:38)
[2017-01-08] MEDS ORDERED: LIPITOR20 PO (10:39)
[2017-01-08] MEDS ORDERED: DURICEF PO (10:40)
[2017-02-02] MEDS ORDERED: NORCO1 TA2 PO (18:31)
== END 2017-01-08 11:58 | disposition home or self-care (01) | DRG 504 ==
LOC: ER 19:55 → 4SO 20:41
PROVIDERS: Internal Medicine; Nurse Practitioner; Surgery
PROC: 0Y6P0Z0 Detachment at Right 1st Toe, Complete, Open Approach (ICD-10-PCS; principal; 2017-01-06 10:45)
DX: M86.8X7 Other osteomyelitis, ankle and foot (principal); E46 Unspecified protein-calorie malnutrition; G62.9 Polyneuropathy, unspecified; L97.519 Non-pressure chronic ulcer of other part of right foot with unspecified severity; I10 Essential (primary) hypertension; F32.9 Major depressive disorder, single episode, unspecified; Z89.512 Acquired absence of left leg below knee; Z88.0 Allergy status to penicillin; Z88.5 Allergy status to narcotic agent; Z88.2 Allergy status to sulfonamides; L03.031 Cellulitis of right toe; B95.61 Methicillin susceptible Staphylococcus aureus infection as the cause of diseases classified elsewhere
CPT/HCPCS: 73630-RT; 80048; 80053; 82728; 82962; 83036; 83735; 84100; 85007; 85025; 85027; 85652; 86140; 87040; 87070; 87077; 87186; 87205; 88305; 88311; 93005; 99284; A9270-GY; J0690; J2250; J2370; J2405; J3010; J3370

== ENCOUNTER 2017-01-12 20:00 | Emergency (ER) | payer MEDICARE, OTHER ==
[~2017-01-12 20:00] MED LIST changes: +DURICEF PO; +HALF81 PO; +LIPITOR20 PO; +NORCO1 TA2
[2017-02-02] MEDS ORDERED: NORCO1 TA2 PO (18:31)
== END 2017-01-12 21:44 | disposition home or self-care (01) ==
LOC: ER 20:00
DX: S99.921A Unspecified injury of right foot, initial encounter (principal); Z88.0 Allergy status to penicillin; Z88.5 Allergy status to narcotic agent; Z88.8 Allergy status to other drugs, medicaments and biological substances; Z79.899 Other long term (current) drug therapy; Z79.82 Long term (current) use of aspirin; X58.XXXA Exposure to other specified factors, initial encounter
CPT/HCPCS: 96372; 99282